=== PATIENT | male | born 1970 | race Caucasian/White ===

== ENCOUNTER 2017-04-14 08:42 | Day surgery (SDC) | payer OTHER ==
[~2017-04-14 08:42] MED LIST: CEFAZOLIN 1 GM/D5W RTU 1 GM/50 ML RTUPB IV PRN
[2017-04-14] MEDS ORDERED: FENTANYL CITRATE INJ/PF 100 MCG/2 ML AMPUL ONE (09:35)
[2017-04-14] MEDS ORDERED: PROPOFOL INJ 200 MG/20 ML VIAL IV ONE (09:35)
[2017-04-14] MEDS ORDERED: MIDAZOLAM 2 MG/2 ML INJ ONE (09:35)
[2017-04-14] MEDS ORDERED: BUPIVACAINE HCL 0.5 % INJ/PF 30 ML SDV ONE (09:47)
[2017-04-14] MEDS ORDERED: BACITRACIN INJ 50,000 UNIT VIAL ONE (09:47)
[2017-04-14] MEDS ORDERED: NORMAL SALINE INJ/PF 0.9% 10 ML SDV ONE (09:47)
[2017-04-14] MEDS ORDERED: POLYMYXIN B SULFATE INJ 500000 UNIT VIAL ONE (09:47)
[2017-04-14] MEDS ORDERED: LIDOCAINE 2% INJ (20 MG/ML) 20 ML MDV ONE (09:47)
--- NOTE | 2017-04-14 11:53 | [facility] DISCHARGE SUMMARY E ---
[facility] Discharge Summary NAME: SHANNA URBAN AGE: 46Y ADMITTED: 04/14/2017 DISCHARGED: 04/14/2017 SURGICAL PROCEDURES: 1. Partial excision of bone proximal interphalangeal joint fourth digit left foot. 2. Partial excision of bone distal phalanx fifth digit left foot. POSTOPERATIVE DIAGNOSES: 1. 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 2. Hypertrophy of bone fifth digit left foot. SURGEON: Laura Fried DPM HUMAN RESOURCES LEADER: Pietro Emmanuel DPM HOSPITAL COURSE: The patient was admitted to [facility] with chief complaint of painful fourth and fifth toes on his left foot. He stated that he kept getting corns on the area and that it was painful whenever he had to wear shoes. He underwent conservative therapy, but he stated that he wanted the problem to be surgically relieved. The patient underwent the above surgical procedures without any complications and was transferred to the recovery room. He was discharged with a surgical shoe, an ice pack, postoperative instructions, and postoperative prescriptions for Percocet 5/325 mg, #30, and Phenergan 25 mg, #15. He was given a followup appointment in the doctor's office in 1 week, and he was discharged from [facility]. DICTATING PHYSICIAN: LAURA FRIED D.P.M. [id number] PHY#: [id number] ID: [id number] JOB#: [id number] ACCT: [id number] cc:LAURA FRIED DPM >
--- NOTE | 2017-04-14 11:53 | [facility] OPERATIVE REPORT E ---
[facility] Operative Report NAME: SHANNA URBAN AGE: 46Y DATE OF SURGERY: ROOM: PREOPERATIVE DIAGNOSES: Hypertrophy of bone, fourth digit left foot, and hypertrophy of the fifth digit left foot. POSTOPERATIVE DIAGNOSES: Hypertrophy of bone, fourth digit left foot, and hypertrophy of bone fifth digit left foot. OPERATION: 1. Partial excision of bone, proximal interphalangeal joint, fourth digit left foot. 2. Partial excision of bone, distal phalanx, fifth digit left foot. SURGEON: LAURA MIX DPM. SOCIAL MEDIA MARKETING ANALYST: MAIDA LOZANO DPM. PROCEDURE: Following induction of IV regional local anesthesia, the left foot and leg were prepped and draped in the usual sterile manner. A pneumatic tourniquet was placed around the left ankle and inflated to 250 mmHg after exsanguination of limb with an Esmarch bandage. The following surgical procedures were then performed: 1. PARTIAL EXCISION OF BONE, PROXIMAL INTERPHALANGEAL JOINT, FOURTH DIGIT LEFT FOOT: Attention was directed to the fourth digit of the left foot where an approximately 1.5 cm dorsal lateral incision was made at the proximal interphalangeal joint. The incision was deepened via sharp dissection. Bleeders were clamped and Bovied as necessary for the purpose of hemostasis. The hypertrophied bone at the proximal interphalangeal joint was freed from all soft tissue attachments via sharp dissection. Utilizing a rongeur the hypertrophied bone was removed. The area was then rasped smooth utilizing a Santiago Cross-Cut round. The area was then flushed with copious amounts of antibacterial saline solution. The deep tissue was coapted and maintained utilizing simple interrupted sutures of 3-0 Vicryl. The skin was then coapted and maintained utilizing horizontal mattress sutures of 5-0 nylon. 2. PARTIAL EXCISION OF BONE, DISTAL PHALANX, FIFTH DIGIT LEFT FOOT: Attention was directed to the distal medial aspect of the fifth digit of the left foot where two 1 cm semi-elliptical incisions were made over the hypertrophied lesion, which was then removed in toto from the wound. The incision was deepened via sharp dissection. The hypertrophied bone at the distal medial aspect of the distal phalanx was removed utilizing a combination of rongeur and a Santiago Cross-Cut rasp. The area was then flushed with copious amounts of an antibacterial saline solution. The skin was then coapted and maintained utilizing horizontal mattress sutures of 3-0 nylon. A dry sterile dressing was then applied consisting of Frandy silk, 4 x 4s, Conform, Kerlix, and Coban. The pneumatic tourniquet was released. It was noted that all digits were warm and viable. The patient was transferred to the recovery room. DICTATING PHYSICIAN: LAURA MIX D.P.M. [id number] PHY#: [id number] ID: [id number] JOB#: [id number] ACCT: [id number] cc:LEEANNA YANG DPM > MTDD
== END 2017-04-14 11:45 | disposition home or self-care (01) ==
LOC: SC 08:42
PROVIDERS: ATTEND Podiatrist Foot Surgery
PROC: 0QBR0ZZ Excision of Left Toe Phalanx, Open Approach (ICD-10-PCS; 2017-04-14)
PROC: 0QBR0ZZ Excision of Left Toe Phalanx, Open Approach (ICD-10-PCS; principal; 2017-04-14 09:45)
DX: M89.372 Hypertrophy of bone, left ankle and foot (principal); I10 Essential (primary) hypertension; K21.9 Gastro-esophageal reflux disease without esophagitis; F17.210 Nicotine dependence, cigarettes, uncomplicated; Z79.899 Other long term (current) drug therapy
CPT/HCPCS: 28160; 28124; J2250; J3490 ×4; J0690; J3010; J2704; 1480